=== PATIENT | male | born 2000 | race Caucasian/White ===

== ENCOUNTER 2022-03-21 23:21 | Emergency (ER) | payer SELFPAY ==
[~2022-03-21] VITALS: Ht 172.7 cm; Wt 65.8 kg
[2022-03-21 23:28] VITALS: BP 103/88
[2022-03-21 23:31] VITALS: BP 103/88
--- NOTE | 2022-03-21 23:39 | NUR ---
SEEN AND EXAMINED BY LOIS
--- NOTE | 2022-03-21 23:45 | NUR ---
Patient discharged with v/s stable BY DR. CHRISTIANSEN. Written and verbal after care instructions given and explained. Patient verbalized understanding. Police with in custody. All questions addressed prior to discharge. Advised to follow up with PMD.
--- NOTE | 2022-03-21 23:45 | NUR ---
PATIENT BIB POLICE DEPT. PATIENT EXAMINED BY DR. CHRISTIANSEN. PATIENT MEDICALLY CLEARED AND RELEASED IN CUSTODY IN STABLE CONDITION. ORIGINAL PRE-BOOK FORM GIVEN TO OFFICER .
--- NOTE | 2022-03-23 01:32 | NUR ---
Note elida in ED - 03/23/22 at 0133 by [facility] Patient discharged with v/s stable BY DR. CHRISTIANSEN Written and verbal after care instructions given and explained. Patient verbalized understanding. Police with in custody. All questions addressed prior to discharge. Advised to follow up with PMD.
== END 2022-03-21 23:31 ==
LOC: MED 23:21
DX: S00.412A Abrasion of left ear, initial encounter (principal); Z02.89 Encounter for other administrative examinations; X58.XXXA Exposure to other specified factors, initial encounter; Y93.89 Activity, other specified; Y92.89 Other specified places as the place of occurrence of the external cause; Y99.8 Other external cause status
CPT/HCPCS: 99283